=== PATIENT | male | born 1995 | race Native Hawaiian/Other Pacific Islander ===

== ENCOUNTER 2017-04-16 19:13 | Outpatient (CLI) | payer OTHER | END 2017-04-16 20:03 | disposition short-term general hospital (02) | LOC: AMB 19:13 | DX: S98.212A Complete traumatic amputation of two or more left lesser toes, initial encounter (principal); W28.XXXA Contact with powered lawn mower, initial encounter; Y92.096 Garden or yard of other non-institutional residence as the place of occurrence of the external cause | CPT/HCPCS: A0425; A0427 ==